=== PATIENT | female | born 1970 | race Caucasian/White ===

== ENCOUNTER 2021-01-20 10:30 | Inpatient (IN) | payer OTHER ==
[~2021-01-20] VITALS: Ht 157.5 cm; Wt 105.7 kg
[~2021-01-20 10:30] MED LIST: ULTRACET
[2021-01-25] MEDS ORDERED: ONDANSETRON ODT4 MG PO (16:28)
[2021-01-25] MEDS ORDERED: PEPCID AC20 MG PO (16:28)
[2021-01-25] MEDS ORDERED: PEDIALYTE1000 ML (16:38)
[2021-01-29] MEDS ORDERED: GLYCOPYRROLATE1 MG (08:49)
== END 2021-01-30 17:43 | disposition home or self-care (01) | DRG 330 ==
LOC: O/R 01-27 06:05 → SURH 01-27 06:05 → O/R 01-28 10:39 → SURH 01-28 10:42
PROVIDERS: ADMIT Colon & Rectal Surgery; ATTEND Colon & Rectal Surgery
PROC: 0DTN4ZZ Resection of Sigmoid Colon, Percutaneous Endoscopic Approach (ICD-10-PCS; 2021-01-27)
PROC: 0DJD8ZZ Inspection of Lower Intestinal Tract, Via Natural or Artificial Opening Endoscopic (ICD-10-PCS; 2021-01-27)
PROC: 4A033R1 Measurement of Arterial Saturation, Peripheral, Percutaneous Approach (ICD-10-PCS; 2021-01-27)
PROC: 4A12X4Z Monitoring of Cardiac Electrical Activity, External Approach (ICD-10-PCS; 2021-01-27)
PROC: 3E0F7SF Introduction of Other Gas into Respiratory Tract, Via Natural or Artificial Opening (ICD-10-PCS; 2021-01-27)
PROC: 0DTP4ZZ Resection of Rectum, Percutaneous Endoscopic Approach (ICD-10-PCS; principal; 2021-01-27 07:00)
DX: K57.32 Diverticulitis of large intestine without perforation or abscess without bleeding (principal); K92.1 Melena; G47.30 Sleep apnea, unspecified; E66.01 Morbid (severe) obesity due to excess calories; F17.200 Nicotine dependence, unspecified, uncomplicated; Z20.822 Contact with and (suspected) exposure to COVID-19

== ENCOUNTER 2021-01-25 10:51 | Emergency (ER) | payer OTHER ==
[~2021-01-25] VITALS: Ht 157.5 cm; Wt 105.7 kg
[2021-01-25] MEDS ORDERED: ONDANSETRON ODT4 MG PO (16:28)
[2021-01-25] MEDS ORDERED: PEPCID AC20 MG PO (16:28)
[2021-01-25] MEDS ORDERED: PEDIALYTE1000 ML (16:38)
== END 2021-01-25 16:59 ==
LOC: ER 10:51
DX: E86.0 Dehydration (principal); K52.89 Other specified noninfective gastroenteritis and colitis; R11.10 Vomiting, unspecified; Z03.818 Encounter for observation for suspected exposure to other biological agents ruled out

== ENCOUNTER 2021-07-14 20:33 | Emergency (ER) | payer OTHER ==
[~2021-07-14] VITALS: Ht 157.5 cm; Wt 104.3 kg
[~2021-07-14 20:33] MED LIST changes: +GLYCOPYRROLATE1 MG; +ONDANSETRON ODT4 MG PO; +PEDIALYTE1000 ML; +PEPCID AC20 MG PO
== END 2021-07-14 23:39 | disposition home or self-care (01) ==
LOC: ER 20:33
DX: R10.84 Generalized abdominal pain (principal)

== ENCOUNTER 2022-05-05 06:00 | Day surgery (SDC) | payer OTHER ==
[~2022-05-05 06:00] MED LIST changes: +NORVASC2.5 M1 PO
== END 2022-05-05 15:00 | disposition home or self-care (01) ==
LOC: CIR.AMB 06:00
PROVIDERS: ATTEND Specialist
DX: N95.0 Postmenopausal bleeding (principal); N84.0 Polyp of corpus uteri; I10 Essential (primary) hypertension; F17.210 Nicotine dependence, cigarettes, uncomplicated; Z86.16 Personal history of COVID-19; Z20.822 Contact with and (suspected) exposure to COVID-19

== ENCOUNTER 2022-10-01 20:51 | Emergency (ER) | payer OTHER ==
[~2022-10-01] VITALS: Ht 157.5 cm; Wt 109.8 kg
== END 2022-10-02 00:49 | disposition home or self-care (01) ==
LOC: ER 20:51
DX: R10.31 Right lower quadrant pain (principal); I10 Essential (primary) hypertension; K57.30 Diverticulosis of large intestine without perforation or abscess without bleeding

== ENCOUNTER 2023-04-29 21:10 | Emergency (ER) | payer OTHER ==
[~2023-04-29] VITALS: Ht 157.5 cm; Wt 100.7 kg
[2023-04-29 23:38] LABS: HEMATOCRIT 42.4 % (36.0-45.00); HEMOGLOBIN 14.3 g/dL (12.0-15.00); MEAN CELL VOLUME 86.3 fL (80.00-100.00); MEAN CORPUSCULAR HGB CONC 33.7 g/dl (32.0-36.0); PLATELET COUNT 211 K/uL (150-450); RED BLOOD COUNT 4.92 M/uL (4.00-6.00); RED CELL DISTRIBUTION WIDTH 14.3 % (11.5-14.5)
[2023-04-29] MEDS ORDERED: OMEPRAZOLE20 M1 PO (23:53)
[2023-04-29] MEDS ORDERED: LEVSIN/SL0.125 MG SL (23:53)
[2023-04-30 00:06] LABS: ALBUMIN 3.5 gm/dL (3.4-5.0); BILIRUBIN TOTAL 0.33 mg/dL (0.3-1.2); CREATININE SERUM 0.67 mg/dL (0.55-1.02); GFR 92.07; GLOBULINA 3.8 G/DL (2.4-3.5); POTASSIUM 3.43 mEq/L (3.5-5.1); TOTAL PROTEIN 7.3 gm/dL (6.4-8.2)
== END 2023-04-30 00:40 | disposition home or self-care (01) ==
LOC: ER 21:10
PROVIDERS: General Practice
DX: R10.32 Left lower quadrant pain (principal); K57.30 Diverticulosis of large intestine without perforation or abscess without bleeding; I10 Essential (primary) hypertension